=== PATIENT | male | born 1980 | race Caucasian/White ===

== ENCOUNTER 2019-04-16 17:31 | Emergency (ER) | payer OTHER ==
[~2019-04-16] VITALS: Ht 200.7 cm; Wt 104.5 kg
[2019-04-16 17:38] VITALS: BP 138/87
[2019-04-16] MEDS ORDERED: CefTRIAXone 250MG inj IM ONE (17:55)
[2019-04-16] MEDS ORDERED: CEPH250T PO (17:55)
[2019-04-16] MEDS ORDERED: CefTRIAXone 250MG IM Kit w/LIDOcaine IM ONE (18:05)
[2019-04-16] MEDS: acetaminophen 325mg tablet PO ONE ×2 (18:12→18:14)
== END 2019-04-16 18:23 | disposition home or self-care (01) ==
LOC: ER 17:34
DX: L03.311 Cellulitis of abdominal wall (principal); Z88.6 Allergy status to analgesic agent
CPT/HCPCS: 96372; 99283; J0696

== ENCOUNTER 2021-06-09 12:59 | Emergency (ER) | payer OTHER ==
[~2021-06-09] VITALS: Ht 182.9 cm; Wt 109.1 kg
[2021-06-09 13:30] VITALS: BP 93/76
[2021-06-09] MEDS ORDERED: rabies vaccine (PCEC)/PF 2.5 unit kit IMVAC ONE (13:30)
[2021-06-09] MEDS ORDERED: LIDOcaine 1% 30ml preserv. free vial IJ ONE (13:30)
[2021-06-09] MEDS ORDERED: TETanus/Pertussis (Acell)/Diphther VAC/PF (Tdap-Adult) 0.5ml syringe IMVAC ONE (13:30)
[2021-06-09] MEDS ORDERED: normal saline 1000ML IV soln IVB ONE (13:35)
[2021-06-09] MEDS ORDERED: LORazepam 2 mg/ml vial IV ONE ×2 (13:35→16:20)
[2021-06-09] MEDS ORDERED: LIDOcaine 1% 30ml preserv. free vial IJ STA (14:46)
[2021-06-09] MEDS ORDERED: LIDOcaine 1% W/epiNEPHrine 1:200,000 10ml vial IJ ONE (15:05)
[2021-06-09] MEDS ORDERED: LIDOcaine 1% w/epiNEPHrine 1:200,000 30ml vial IJ ONE (15:05)
[2021-06-09] MEDS ORDERED: rabies immune globulin/PF 150 unit/ml inj IMVAC ONE ×2 (15:05→16:45)
[2021-06-09] MEDS ORDERED: LIDOcaine 1% W/epiNEPHrine 1:100,000 20ml vial SQ ONE (15:35)
[2021-06-09] MEDS ORDERED: AMOX-580 PO (15:45)
[2021-06-18] MEDS ORDERED: AMOX-580 PO (18:04)
[2021-06-18] MEDS ORDERED: SULF1TAB45 PO (18:04)
== END 2021-06-09 19:41 | disposition home or self-care (01) ==
LOC: ER 12:59
DX: S51.812A Laceration without foreign body of left forearm, initial encounter (principal); Z79.2 Long term (current) use of antibiotics; Z88.6 Allergy status to analgesic agent; W54.0XXA Bitten by dog, initial encounter; Y93.89 Activity, other specified; Y92.89 Other specified places as the place of occurrence of the external cause; Y99.8 Other external cause status
CPT/HCPCS: 12036; 73090; 90376; 90471; 90472; 90675; 90715; 96372; 96374; 96376; 99284; J2060; J7030

== ENCOUNTER 2021-06-12 11:20 | Emergency (ER) | payer OTHER ==
[~2021-06-12] VITALS: Ht 182.9 cm; Wt 109.0 kg
[~2021-06-12 11:20] MED LIST: AMOX-580 PO
[2021-06-12 11:34] VITALS: BP 149/91
[2021-06-12] MEDS ORDERED: rabies vaccine (PCEC)/PF 2.5 unit kit IMVAC ONE (11:55)
== END 2021-06-12 12:27 | disposition home or self-care (01) ==
LOC: ER 11:22
DX: S51.812D Laceration without foreign body of left forearm, subsequent encounter (principal); Z23 Encounter for immunization; Z79.2 Long term (current) use of antibiotics; W54.0XXD Bitten by dog, subsequent encounter
CPT/HCPCS: 90471; 90675; 99281

== ENCOUNTER 2021-06-17 17:23 | Emergency (ER) | payer OTHER ==
[~2021-06-17] VITALS: Ht 182.9 cm; Wt 106.3 kg
[2021-06-17 17:47] VITALS: BP 141/84
[2021-06-17] MEDS ORDERED: rabies vaccine (PCEC)/PF 2.5 unit kit IMVAC ONE (18:15)
[2021-06-17] MEDS ORDERED: DOXY100C77 PO (18:19)
[2021-06-18] MEDS ORDERED: AMOX-580 PO (18:04)
[2021-06-18] MEDS ORDERED: SULF1TAB45 PO (18:04)
== END 2021-06-17 18:32 | disposition home or self-care (01) ==
LOC: ER 17:24
DX: S51.812D Laceration without foreign body of left forearm, subsequent encounter (principal); Z88.6 Allergy status to analgesic agent; Z79.2 Long term (current) use of antibiotics; W54.0XXD Bitten by dog, subsequent encounter
CPT/HCPCS: 90471; 90675; 99283

== ENCOUNTER 2022-02-01 11:17 | Emergency (ER) | payer OTHER ==
[~2022-02-01] VITALS: Ht 182.9 cm; Wt 106.8 kg
[2022-02-01 11:40] VITALS: BP 141/82
== END 2022-02-01 14:29 | disposition left against medical advice (07) ==
LOC: ER 11:17
DX: M25.561 Pain in right knee (principal); Z53.21 Procedure and treatment not carried out due to patient leaving prior to being seen by health care provider
CPT/HCPCS: 73564

== ENCOUNTER 2022-08-17 17:16 | Emergency (ER) | payer OTHER ==
[~2022-08-17] VITALS: Ht 182.9 cm; Wt 106.8 kg
[2022-08-17 17:32] VITALS: BP 134/88
[2022-08-17] MEDS ORDERED: BUPR1FIL3 SL ×3 (18:17→19:42)
[2022-08-17] MEDS ORDERED: QUET300T2 PO ×3 (18:17→19:42)
[2022-08-17] MEDS ORDERED: GABA300C PO ×3 (18:17→19:42)
== END 2022-08-17 18:24 | disposition home or self-care (01) ==
LOC: ER 17:16
DX: F11.10 Opioid abuse, uncomplicated (principal); Z76.0 Encounter for issue of repeat prescription; Z88.6 Allergy status to analgesic agent; Z88.1 Allergy status to other antibiotic agents; Z79.899 Other long term (current) drug therapy
CPT/HCPCS: 99281

== ENCOUNTER 2024-09-04 16:10 | Emergency (ER) | payer OTHER ==
[~2024-09-04] VITALS: Ht 182.9 cm; Wt 102.6 kg
[~2024-09-04 16:10] MED LIST changes: +BUPR1FIL3 SL; +GABA300C PO; +QUET300T2 PO
[2024-09-04 16:12] VITALS: BP 135/87; PULSE 88; O2SAT 98
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
[2024-09-04 17:40] VITALS: RESP 16
[2024-09-04] MEDS: ketorolac trometh 30MG/ML vial 30 MG/ML VIAL IM STA (17:40)
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
[2024-09-04] MEDS ORDERED: METH-798 PO (20:04)
[2024-09-04] MEDS ORDERED: MELO-102 PO (20:05)
[2024-09-04 20:09] VITALS: TEMP 98.3
== END 2024-09-04 20:11 | disposition home or self-care (01) ==
LOC: ER 16:10
DX: M54.50 Low back pain, unspecified (principal); M54.2 Cervicalgia; Z88.0 Allergy status to penicillin; Z88.6 Allergy status to analgesic agent; Z88.8 Allergy status to other drugs, medicaments and biological substances
CPT/HCPCS: 72050; 72074; 72100; 96372; 99284; J1885

== ENCOUNTER 2025-04-06 10:15 | Emergency (ER) | payer OTHER ==
[~2025-04-06] VITALS: Ht 188 cm; Wt 109.4 kg
[~2025-04-06 10:15] MED LIST changes: +MELO-102 PO; +METH-798 PO
[2025-04-06 10:28] VITALS: TEMP 98.1
--- NOTE | 2025-04-06 12:40 | Physician Documentation ---
History of Present Illness ~ Chief Complaint: Back Pain Stated Complaint: R LEG/BACK PAIN Time Seen by MD: 12:28 Primary Medical Doctor: [facility] This is a 44-year-old male with a stated history of back injury during his [employer] service. He then had a back surgery in 2010 involving diskectomy and some type of jeremie in his back at L5. In the last week, his back pain has markedly increased for no clear reason. He denies any injury. He also denies any bowel or bladder incontinence. He does, however, note a new sensation of pain going down from the right inner thigh down to the toes. In addition to his back issues, the patient fell two days ago onto a soldering iron and burned his right foot. He believes he is up-to-date on tetanus. No recent chills or f ever, nausea vomiting, chest pain or shortness of breath, and he denies IV drug use. Medication Reconciliation Allergies: Coded Allergies: NSAIDS (Non-Steroidal Anti-Inflamma (Verified Allergy, Unknown, 06/17/21) amoxicillin (Verified Allergy, Unknown, 09/04/24) Scheduled Amox Tr/Potassium Clavulanate 875/125 MG (Augmentin 875/125 MG), 1 TAB PO BID Baclofen (Baclofen), 1 TAB PO Q8H Buprenorphine Hcl/Naloxone Hcl (Suboxone 8 Mg-2 Mg Sl Film), 1 STRIP SL DAILY Gabapentin (Neurontin), 1 CAP PO Q8H Meloxicam (Meloxicam), 1 TAB PO DAILY Methocarbamol (Methocarbamol), 1 TAB PO Q8H Quetiapine Fumarate (Seroquel), 1 TAB PO HS Scheduled PRN Hydrocodone Bit/Acetaminophen (Hydrocodon-Acetaminophen 5-325), 1 TAB PO TID PRN PRN for pain Past Medical History Past Medical History: No Pertinent History Past Surgical History: noncontributory Lives In: Home Occupation: employed Review of Systems ROS As stated above in the HPI, otherwise all systems are reviewed and negative. Physical Exam Physical Exam Vital Signs: Temperature: 98.1, Source: Oral, Heart Rate: 99, Respiratory Rate: 16, BP: 147/86, Pulse Oximetry: 99, Weight: 109.400 Oxygen Flow Rate: 0 Physical Exam General: Alert, appears uncomfortable. HEENT: PERRL, EOMI, no injection, moist mucous membranes. Neck: Full range of motion. Respiratory: Lungs clear, no respiratory distress. Chest: No accessory muscle use. Cardiovascular: Regular rate and rhythm, no murmurs. Gastrointestinal: Soft, nontender, nondistended. Bowels sounds present. Extremities: Normal range of motion, no deformity. Neurologic: Oriented x4. Symmetrical patellar reflexes. Able to feel touch to inner upper thighs. Psychiatric: Normal mood and affect. Skin: Normal color, warm and dry. No edema, no ecchymosis. Progress Results/Orders Results/Orders Orders - LUCIANA MEYERS DIRECT CARE WORKER Ct Lumbar Spine (04/06/25 12:51) Dressing Orders (04/06/25 12:40) Laceration/I&D Tray Set Up (04/06/25 12:40) Wound Care Orders (04/06/25 12:40) Completed Orders - LUCIANA MEYERS DIRECT CARE WORKER Acetaminophen 325mg Tablet (Tylenol Tabl (04/06/25 12:35) Oxycodone Immed Release Tablet (Oxy Ir T (04/06/25 12:35) Orphenadrine Citrate Inj. (Norflex Inj.) (04/06/25 12:35) Ct Lumbar Spine (04/06/25 12:51) Medications Received in ER Medications (Trade) Dose Ordered Sig/Rodriguez Route PRN Reason Start Time Stop Time Status Last Admin Dose Admin (Tylenol tablet) 650 mg ONCE ONCE PO 04/06/25 12:35 04/06/25 12:37 DC 04/06/25 13:15 650 MG (OXY IR tablet) 5 mg ONCE ONCE PO 04/06/25 12:35 04/06/25 12:37 DC 04/06/25 13:15 5 MG (Norflex inj.) 60 mg ONCE ONCE IM 04/06/25 12:35 04/06/25 12:37 DC 04/06/25 13:19 60 MG Vital Signs 04/06/25 04/06/25 10:28 13:01 Temp 98.1 Pulse 99 Resp 16 B/P (MAP) 147/86 Pulse Ox 99 O2 Flow Rate 0 EKG/XRAY/CT/US/VASC/MRI CT : Impression [facility] [address] , [place], [facility] [address] CAT SCAN Patient: GONZALEZ MARQUEZ Medical Record: [id number] [facility] : 1980, Age: 44 Sex: Male Location: ER Patient Status: REG ER Service Date/Time: 04/06/25/ 1251 Ordering Physician: LUCIANA MEYERS DIRECT CARE WORKER Exam: CT LUMBAR SPINE EXAM: CT CT LUMBAR SPINE INDICATION: severe low back pain, hx L5 disc/fusion TECHNIQUE: Axial images of the lumbar spine have been obtained along with coronal and sagittal reformatted images. CT scans at this facility use dose modulation, iterative reconstruction, and/or weight based dosing when appropriate to reduce radiation dose to as low as reasonably achievable. COMPARISON: DI LUMBAR SPINE LIMITED on DOS: 09/04/24 FINDINGS: ANATOMY: Five lumbar-type vertebral bodies are present. The most inferior well- formed disc space will be referred to as L5-S1 for purposes of numbering in this report. VERTEBRAL BODIES: The vertebral bodies are normal in height and alignment. SPINAL CANAL: No spinal canal narrowing. INTERVERTEBRAL DISCS: Intervertebral disc spacer at L4-5 extending into the superior endplate of L5. FACETS: Multilevel mild to moderate facet arthropathy at L4-5 and L5-S1 OTHER: L4-L5 posterior fusion and posterior decompression of the L4. LEVEL BY LEVEL DISCUSSION BELOW: T12-L1: Unremarkable. L1-L2: Unremarkable. L2-L3: Unremarkable. L3-L4: Unremarkable. L4-L5: L4-L5 posterior fusion and posterior decompression of the L4. Intervertebral disc spacer at L4-5 extending into the superior endplate of L5. L5-S1: At least moderate bilateral L5-S1 foraminal narrowing. IMPRESSION: 1. No CT evidence of an acute fracture. 2. L4-L5 posterior fusion and posterior decompression of the L4. 3. At least moderate bilateral L5-S1 foraminal narrowing. Electronically Signed by:JONATHAN HAUSER MD Date & Time: 12/07/25 1313 Dictated by: JONATHAN HAUSER MD Dictation date and time: 04/06/251312 Primary Care Provider: NO PRIMARY CARE PROVIDER cc: LUCIANA MEYERS DIRECT CARE WORKER ~ Medical Decision Making Additional information obtaine: family Findings accompanies him and patient is a good historian. Differential Dx:Considerations: AAA, Aortic dissection, , Appendicitis, Bowel obstruction, Cholelithiasis, Cholangitis, DJD, Ectopic , Fracture, Hepatitis, HNP, Musculoskeletal pain, Pancreatitis, Pyelonephritis, Strain, Urinary obstruction, Urolithiasis, Ovarian torsion, Renal infarction, Urinary tract infection Differential Diagnosis Denies hx of IV drug use. Patient denies chills or fever, nausea or vomiting. Patient denies any issues with saddle anesthesia or new incontinence. CT scan was done, MRI was not felt to be warranted. Patient was given detailed instructions regarding the need to follow up with his primary care provider or return if worse. The patient will be sent with a few hydrocodone for pain. Departure Time of Disposition: 13:30 Disposition: 01 HOME / SELF CARE / HOMELESS Impression: Primary Impression: Low back pain Condition: Stable Discharge Instructions: Chronic Back Pain Additional Instructions: ### Low Back Pain Instructions What You Need to Know About Your Low Back Pain Your CT scan today did not show any serious problems that need immediate treatment. Most people with low back pain get better over time, even without specific treatment. However, it's important to know when to seek immediate medical care.[1] Warning Signs: Return to the Emergency Department Immediately If You E xperience: - New problems controlling your bladder or bowels - This includes being unable to urinate, leaking urine or stool without control, or feeling like your bladder is full but you can't empty it[2][3][4] - Numbness or tingling in your groin, buttocks, or inner thighs (called "saddle anesthesia")[2][4] - New or worsening weakness in your legs - Especially if you notice difficulty walking, standing, or lifting your feet[2][3] - Progressive numbness or loss of feeling in your legs[2][3] - Fever along with your back pain[2][5] - Unexplained weight loss[5][2] - Severe pain that keeps getting worse despite treatment[2] These symptoms could indicate a serious condition that needs immediate evaluation and treatment.[2] What You Should Do Now Stay Active: Avoid bed rest if possible. Continue your normal activities as much as you can tolerate. Staying active helps you recover faster.[1][4] Use Heat: Applying heat to your lower back can help reduce pain.[1] Pain Management: Kcok-hnq-lzwglpq anti-inflammatory medications like ibuprofen or naproxen can help with pain and function. Talk to your pharmacist or doctor about the right dose for you.[1] Follow-Up Care Schedule an appointment with your primary care doctor within 1-2 weeks. Your doctor needs to: - Check on your recovery - Provide a referral to physical therapy - Monitor for any warning signs - Consider whether you need an MRI if your pain doesn't improve Physical Therapy: Given your history of back surgery and ongoing pain, physical therapy can be very helpful. Specific exercises and treatments directed by a physical therapist may help decrease your pain and prevent it from coming back. Ask your primary care doctor for a referral.[1][4] About MRI: An MRI was not needed today because you don't have warning signs of serious nerve problems. However, if your pain continues beyond 8 weeks despite treatment, or if you develop new symptoms, your doctor may order an MRI at that time.[6] What to Expect Most people with low back pain improve significantly within the first month. Your history of previous back surgery means your recovery might take longer, but staying active and working with ### References 1. Noninvasive Treatments for Acute, Subacute, and Chronic Low Back Pain: A Clinical Practice Guideline From the [employer]. Qasechristie A, Wilt TJ, Jefferson RM, et al. Annals of Internal Medicine. 2017;166(7):514-530. doi:10.7326/D76-7199. 2. Diagnosis and Treatment of Low Back Pain (LBP) (2021). Maj Rima Pryor DPT DSc OCS FAAOMPT, Rosa Maria Berumen MD MA, [facility] Perez Rocha MD, et al. [facility]. 3. Mechanical Low Back Pain. Will JS, Bury DC, Cardoza JA. [employer]. 2018;98(7):421-428. 4. Diagnosis and Treatment of Acute Low Back Pain. Rebeka CUEVAS. [employer]. 2012;85(4):343-50. 5. Nonspecific Low Back Pain. Nohelia A, Natalio MARTINS. The [place] Journal of Medicine. 2021;386(18):9996-6369. doi:10.[email or web address]. 6. Acute Low Back Pain: Diagnosis and Management. Rasheed JS, Jered NA, Constantine RS. [employer]. 2024;112(5):526-536. Referrals: NO PRIMARY CARE PROVIDER (PCP) Prescriptions Baclofen (Baclofen) 10 Mg Tablet 1 TAB PO Q8H for 10 Days, #30 TAB 0 Refills Prov: LUCIANA MEYERS NP 04/06/25 Hydrocodone Bit/Acetaminophen (Hydrocodon-Acetaminophen 5-325) 5 Mg-325 Mg Tablet 1 TAB PO TID PRN PRN for pain for 5 Days, #15 TAB Prov: LUCIANA MEYERS NP 04/06/25 Education Educated: Patient, Family Educated regarding: diagnosis, treatment, prognosis, need for follow up Signature Scribe Signature: x Attestation: The note accurately reflects work and decisions made by me.Luciana Hebert NP 04/06/25 13:53 LUCIANA MEYERS NP Apr 06, 2025 12:40
[2025-04-06] MEDS: oxyCODONE IR 5mg (immed. release) tablet PO ONE (13:15)
--- NOTE | 2025-04-06 13:16 | RADIOLOGY REPORT ---
EXAM: CT CT LUMBAR SPINE INDICATION: severe low back pain, hx L5 disc/fusion TECHNIQUE: Axial images of the lumbar spine have been obtained along with coronal and sagittal reformatted images. CT scans at this facility use dose modulation, iterative reconstruction, and/or weight based dosing when appropriate to reduce radiation dose to as low as reasonably achievable. COMPARISON: DI LUMBAR SPINE LIMITED on DOS: 09/04/24 FINDINGS: ANATOMY: Five lumbar-type vertebral bodies are present. The most inferior well- formed disc space will be referred to as L5-S1 for purposes of numbering in this report. VERTEBRAL BODIES: The vertebral bodies are normal in height and alignment. SPINAL CANAL: No spinal canal narrowing. INTERVERTEBRAL DISCS: Intervertebral disc spacer at L4-5 extending into the superior endplate of L5. FACETS: Multilevel mild to moderate facet arthropathy at L4-5 and L5-S1 OTHER: L4-L5 posterior fusion and posterior decompression of the L4. LEVEL BY LEVEL DISCUSSION BELOW: T12-L1: Unremarkable. L1-L2: Unremarkable. L2-L3: Unremarkable. L3-L4: Unremarkable. L4-L5: L4-L5 posterior fusion and posterior decompression of the L4. Intervertebral disc spacer at L4-5 extending into the superior endplate of L5. L5-S1: At least moderate bilateral L5-S1 foraminal narrowing. IMPRESSION: 1. No CT evidence of an acute fracture. 2. L4-L5 posterior fusion and posterior decompression of the L4. 3. At least moderate bilateral L5-S1 foraminal narrowing.
[2025-04-06] MEDS: orphenadrine citrate 60mg/2ml inj. IM ONE (13:19)
[2025-04-06] MEDS ORDERED: HYDR-3964 PO (13:31)
[2025-04-06] MEDS ORDERED: BACL10TA2 PO (13:31)
[2025-04-06 13:54] VITALS: BP 137/97; PULSE 87; RESP 18; O2SAT 98
== END 2025-04-06 14:01 | disposition home or self-care (01) ==
LOC: ER 10:16
DX: M54.50 Low back pain, unspecified (principal); Z88.6 Allergy status to analgesic agent; Z88.1 Allergy status to other antibiotic agents; Z79.899 Other long term (current) drug therapy
CPT/HCPCS: 72131; 96372; 99285; J2360; A6258; A6449